=== PATIENT | female | born 1955 | race Caucasian/White ===

== ENCOUNTER 2020-01-14 14:14 | Day surgery (SDC) | payer BC ==
[2020-01-13 09:23] VITALS: BMI 29.7
[~2020-01-14 14:14] MED LIST: MIDAZOLAM 2 MG/2 ML VIAL IV PRN; ONDANSETRON 4 MG/2 ML VIAL IVP PRN; ceFAZolin 1,000 MG in SODIUM CHLORIDE 0.9% IRRIGATIO 1,000 ML IRRIGATION ONE
[2020-01-14] MEDS ORDERED: ONDANSETRON 4 MG/2 ML VIAL ONE (14:36)
[2020-01-14] MEDS: LACTATED RINGERS 1,000 ML IV SCH ×2 (14:42→20:45)
[2020-01-14] MEDS ORDERED: DEXAMETHASONE SOD PHOSPHATE 10 MG/ML 1 ML VIAL IV ONE (14:42)
[2020-01-14] MEDS ORDERED: MIDAZOLAM 2 MG/2 ML VIAL ONE (14:44)
[2020-01-14] MEDS ORDERED: PHENYLEPHRINE-0.9% NACL SYG 1 MG/10 ML SYRINGE ONE (14:44)
[2020-01-14] MEDS ORDERED: ePHEDrine SULFATE/0.9% NACL/PF 50 MG/5 ML SYRINGE IV ONE (14:44)
[2020-01-14] MEDS ORDERED: fentaNYL (PF) 50 MCG/ML 2 ML AMP ONE (14:44)
[2020-01-14] MEDS ORDERED: SUCCINYLCHOLINE CHLORIDE 100 MG/5 ML SYR IV ONE (14:44)
[2020-01-14] MEDS ORDERED: PROPOFOL 10 MG/ML 20 ML VIAL IV ONE (14:44)
[2020-01-14] MEDS ORDERED: LIDOCAINE 1% INJ 10MG/ML (20 ML MDV) ONE (14:44)
[2020-01-14] MEDS ORDERED: KETOROLAC 15 MG/ML 1 ML VIAL ONE (14:44)
[2020-01-14] MEDS ORDERED: HYDROcodone/APAP 5-325MG 1 EACH TAB PO PRN (15:54)
[2020-01-14] MEDS ORDERED: ONDANSETRON 4 MG/2 ML VIAL IVP PRN (15:54)
--- NOTE | 2020-01-14 16:03 | P.OP ---
Date of Procedure: 01/14/20 Preoperative Diagnosis: Right ankle acute traumatic trimalleolar ankle fracture with displacement, right ankle pain Postoperative Diagnosis: Same Anesthesia: GETA Pathology: none sent Condition: stable Disposition: PACU Description of Procedure: BRIEF OPERATIVE NOTE Preoperative Diagnosis: Right ankle acute traumatic trimalleolar ankle fracture with displacement, right ankle pain Postoperative Diagnosis: Same Procedure: Open reduction internal fixation of right distal fibula fracture and this distal tibia medial malleolus fracture Use of fluoroscopic guidance Surgeon: Dr. Quintana Administrative Professional: Bg Curtis is present throughout the entire the case persistence during positioning, dissection, exposure, visualization, and all crucial elements of the case as well as closure. Anesthesia: General anesthesia Estimated blood loss: Less than 30 mL Tourniquet time: Approximately 40 minutes Specimen: None Complications: None apparent Components implanted: Synthes small frag one third semitubular plate with 7 screws with comminution of 3.5 cortical and 40 cancellus screw Disposition: To recovery room in good stable condition. OPERATIVE INDICATIONS The patient had an acute injury 2 days ago when she slipped and fell after walking at home and missing a step.. She had immediate pain and swelling in her right ankle. She had not had any pain or issues prior to her fall. She was evaluated and found have a comminuted distal fibula fracture with accompanying medial sided pain. There is no evidence of fracture at the medial malleolus but there was evidence of deltoid ligament injury. With the comminution and the medial and lateral pain involved I felt that her best chance of healing would be to pursue open reduction internal fixation of distal fibula. I discussed the risk of occasions alternatives and benefits of surgery in relation to her injury. I discussed the risk of bleeding risk and infection risk and need for further surgery risk of decreased loss of motion loss function malunion nonunion hardware failure nerve damage as well as, occasions with surgery were explained. I answered her questions best my ability and she elected proceed with surgical intervention. OPERATIVE SUMMARY After discussing all the risks, patient alternatives and benefits at length, the patient elected to proceed with surgical intervention, signed informed consent, and presented for their procedure. The patient was seen and examined in the preoperative holding area and the surgical site was marked. The patient was given antibiotics and brought to the operating room. The patient was sedated and intubated by anesthesia in standard fashion. The patient was positioned on to the operating room table in a supine position with a pad under her right hip. We were careful to pad any bony prominences and pressure points. We were careful to maintain the patient's cervical spine and good neutral alignment and position throughout. We used C-arm machines to establish union fluoroscopic guidance in AP and lateral positions. We were able to localize the fractures appropriately. The patient was prepped and draped in a normal standard fashion. An appropriate timeout and keystone protocol performed. We were able to proceed with the surgery. The local wound area was infiltrated with local anesthetic. An incision was made over the lateral aspect of the ankle and I dissected down to the distal fibula appropriately. The fracture was obvious and I was able to mobilize some of the fragments and elevated some of the periosteum leaving as much is intact as possible. I performed a gentle reduction techniques in order to get the fractures well aligned and use of bone clamp to get good provisional fixation. I was able to get good near-anatomic position. This was confirmed with C-arm guidance. I was then able to measure and position a one third semitubular 7 hole plate and contoured appropriately over the distal fibula and over the fracture site proximally and distally. I establish an interfragmentary screw going from anterior to posterior across fracture site and good alignment and position with good bony fixation. As able to remove the bone clamp in place the plate laterally and placed cortical screws proximally and cancellous screws distally to get excellent fixation at a near anatomic position. This was c onfirmed with C-arm guidance. The medial malleolus was also evaluated and there was a small fracture. We released good reduction and through small percutaneous aspect that was able to establish a guidepin and then using a cannulated drill with C-arm guidance to establish a cancellus screw placement at the medial malleolus with excellent bony fixation and reduction of the fracture itself. It had excellent bone purchase and position. Significant. I performed medial and lateral varus and valgus stress at the ankle after fixation was performed and there is no evidence of any widening or displacement of the syndesmosis or the ankle mortise. I do not feel we needed any further fixation. We were able to proceed with closure. Deep layers were closed with 2-0 Vicryl subcu tissues closed 2-0 Vicryl and skin was closed with 4-0 nylon. The wound was cleaned and dried and dressed with the appropriate dressing. I placed a sugar tong and posterior mold well-padded well molded splint at the right lower leg. The drapes were broken down. The patient was gently rolled back onto their hospital bed being careful to maintain their cervical spine and good neutral alignment and position. They were woken up by anesthesia, extubated, and brought to the recovery room in good stable condition. The patient will be able to be discharged from the hospital after appropriate observation due to and for appropriate postoperative care, medical management and monitoring. We will continue to follow them closely about the postoperative course. a plan see her back in the office in approximately 1 week's time or sooner if she is having problems.
--- NOTE | 2020-01-14 16:23 | FL ---
EXAMINATION TYPE: FL guidance operating room, XR ankle limited RT DATE OF EXAM: 01/14/2020 CLINICAL HISTORY: Right ankle fracture. TECHNIQUE: Fluoroscopy. Intraoperative limited views right ankle. COMPARISON: None. FINDINGS: Fluoroscopic guidance was provided during open reduction internal fixation procedure perfo rmed by Dr. Quintana. A total of 13 seconds of fluoroscopic time was utilized during the procedure and 3 spot intraoperative images are acquired. Intraoperative images acquired show fixating screw through medial malleolus fracture and lateral fixa ting plate through lateral malleolus fracture. Satisfactory alignment is seen on intraoperative image s obtained. Fracture line is not well identified. IMPRESSION: As Above.
[2020-01-14] MEDS: fentaNYL (PF) 50 MCG/ML 2 ML AMP IV PRN ×2 (16:29→16:32)
[2020-01-14] MEDS: HYDROmorphone 0.5 MG/0.5 ML SYRINGE IVP PRN ×3 (16:41→16:51)
[2020-01-14] MEDS ORDERED: LACTATED RINGERS 1,000 ML IV ONE (16:49)
[2020-01-14] MEDS: LACTATED RINGERS 1,000 ML IV ONE ×3 (16:49→20:35)
[2020-01-14] MEDS ORDERED: ONDANSETRON 4 MG/2 ML VIAL IVP ONE (17:18)
[2020-01-14 19:33] LABS: Glucose,Whole Blood 151 mg/dL (75-99)
[2020-01-14] MEDS ORDERED: LABETALOL SYRINGE 5 MG/ML IVP ONE (19:52)
[2020-01-14 21:03] VITALS: RESP 18
[2020-01-15 05:50] VITALS: BP 166/83; TEMP 97.9
[2020-01-15 06:25] VITALS: PULSE 100
--- NOTE | 2020-01-15 07:42 | P.DS ---
Providers Date of admission: Attending physician: Maura Quintana Primary care physician: Stated None Hospital Course: The patient presented on the day of admission as per their operative note. She had a trimalleolar ankle fracture and underwent open reduction internal fixation yesterday as per her operative note. She says she's feeling better. She said yesterday evening she was significant weight dizzy after the anesthesia and was unable to get up on her own. She does not feel safe going home history evening. She says this morning she is much more comfortable she has already been up out of bed and brought to the bathroom. She is no longer having dizziness. She says her ankle is sore but it feels better. Physical Exam The incision site is clean dry and intact. There is no drainage on the dressing. There is no purulence no evidence of infection. Her toes are pink and warm she has good motion in her toes. Capillary refill less than 2 seconds. A bulky splint is intact. Abdomen soft and nontender. Chest has good excursion with deep inspiration and expiration. The patient has active and passive range of motion intact at the upper and lower extremities. There is no acute change in neurologic status. Hospital Course Postoperative day #1 status post open reduction internal fixation of trimalleolar ankle fracture with fixation at the fibula and medial malleolus. The patient initially had significant dizziness postoperatively and was unable to the discharge home yesterday evening but is feeling much more comfortable today The patient has been making good progress postoperatively. They have completed the prophylactic antibiotics without any signs or symptoms of infection. The patient has been able to advance their diet, and is tolerating diet adequately. The pain was initially controlled with IV medications and is now controlled appropriately with oral medications. The patient has been able to increase their mobilization. The patient has progressed appropriately. I think they are in good stable condition for discharge today. They will be sent home with appropriate prescriptions. I answered their questions to the best of my ability in a language that they can understand and they are agreeable with the plan. They will follow up as directed in one week or sooner if she is having problems. She should remain nonweightbearing on the right lower extremity and we will a prescription for a walker as she has been having difficulty with crutches. Patient Condition at Discharge: Good Plan - Discharge Summary Discharge Rx Participant: No New Discharge Prescriptions: New HYDROcodone/APAP 5-325MG [[place] 5] 1 each PO Q6HR PRN #12 tab PRN Reason: Pain No Action Naproxen 500 mg PO BID PRN PRN Reason: Pain Control Lisinopril-Hctz 20-25 mg [Zestoretic 20-25] 1 tab PO HS Discharge Medication List Lisinopril-Hctz 20-25 mg [Zestoretic 20-25] 1 tab PO HS 01/13/20 [History] Naproxen 500 mg PO BID PRN 01/13/20 [History] HYDROcodone/APAP 5-325MG [[place] 5] 1 each PO Q6HR PRN #12 tab 01/14/20 [Rx] Follow up Appointment(s)/Referral(s): Maura Quintana DO [Doctor of Osteopathic Medicine] - 1 Week Patient Instructions/Handouts: *Surgery [facility] - (Anesthesia) Discharge Instructions Outpatient Surgery, ORIF of an Ankle Fracture (DC) Activity/Diet/Wound Care/Special Instructions: Nonweightbearing right lower extremity. Keep Simon wrap and splint intact. Elevate right lower extremity. Do not remove dressing. CALL AND MAKE AN APPOINTMENT TOMORROW FOR ONE WEEK Discharge Disposition: HOME SELF-CARE
== END 2020-01-15 09:53 | disposition home or self-care (01) ==
LOC: OR 14:14 → 6NMEDSUR 19:06 → OR 01-15 09:53
PROVIDERS: ATTEND Orthopaedic Surgery Orthopaedic Surgery of the Spine
DX: S82.851A Displaced trimalleolar fracture of right lower leg, initial encounter for closed fracture (principal); I10 Essential (primary) hypertension; M19.90 Unspecified osteoarthritis, unspecified site; E07.9 Disorder of thyroid, unspecified; K21.9 Gastro-esophageal reflux disease without esophagitis; E66.9 Obesity, unspecified; Z88.0 Allergy status to penicillin; Z88.6 Allergy status to analgesic agent; Z79.899 Other long term (current) drug therapy; Z97.3 Presence of spectacles and contact lenses; Z82.49 Family history of ischemic heart disease and other diseases of the circulatory system; Z98.890 Other specified postprocedural states; Z87.891 Personal history of nicotine dependence; X50.1XXA Overexertion from prolonged static or awkward postures, initial encounter; Y93.01 Activity, walking, marching and hiking; Z68.29 Body mass index [BMI] 29.0-29.9, adult
CPT/HCPCS: 27822; 73600; C1713; J2250; J1100; J0690 ×3; J2405; J2001; J3010; J1885; J2370; J0330; J2704; J1170